=== PATIENT | female | born 2000 | race Caucasian/White ===

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

== ENCOUNTER 2024-03-20 17:13 | Emergency (ER) | payer MEDICAID, SELFPAY ==
--- NOTE | ~2024-03-20 | XR_ITS ---
EXAMINATION: XR CHEST 5:47 PM CLINICAL INFORMATION: Cough, pneumonia COMPARISON: None available. TECHNIQUE: Frontal view of the chest was obtained. FINDINGS: Airspace opacities are evident in the right perihilar region extending to the periphery of the right midlung zone area there are similar though milder opacities in the left perihilar region. No gross pleural effusions are detected. The cardiomediastinal silhouette is normal. XR/XR chest 1V IMPRESSION: Right greater than left perihilar opacities compatible with bronchopneumonia. Follow-up is recommended to confirm clearing Electronically signed by: eRne Batista MD 03/20/2024 05:52 PM EDT RP
[2024-03-20 17:32] VITALS: BP 158/86; PULSE 114; RESP 18; TEMP 36.8; O2SAT 98; BMI 25.9
--- NOTE | 2024-03-20 17:37 | ED_ITS ---
HPI - General Adult General Chief complaint: Upper Respiratory Symptoms Stated complaint: fever/cough Time Seen by Provider: 03/20/24 18:04 Source: patient Mode of arrival: ambulatory Limitations: no limitations History of Present Illness ED Provider: Elena BURGESS narrative: Patient is a 23 yo female with no significant PMH, presenting with 1 x week of upper respiratory symptoms including productive cough and SOB. States her sputum is intermittently green, she is sore in her rib area from coughing, has been having fevers on and off reaching around 101f. Has been self treating with OTC mucinex with limited relief of symptoms. Denies any N/V, states sometimes cough can cause post tussive emesis. Denies any related EENT symptoms, denies any nasal discharge. MD complaint: cough, fever Onset (ago): day(s) Related Data Previous Rx's ?Medication ?Instructions ?Recorded azithromycin 250 mg tablet See Rx Instructions PO .COMPLEX #6 03/20/24 tabs benzonatate 100 mg capsule 100 mg PO TID PRN cough #20 caps 03/20/24 Allergies Allergy/AdvReac Type Severity Reaction Status Date / Time levonorgestrel-ethinyl Allergy Severe ASTHMA Verified 03/20/24 17:34 estradiol [From [facility]] Penicillins Allergy Intermediate HIVES Verified 03/20/24 17:34 SHELLFISH Allergy Severe UNKNOWN Uncoded 11/30/20 17:38 shellfish Allergy Severe Unknown Uncoded 11/30/20 17:38 Amoxicillin Allergy Intermediate hives Uncoded 11/30/20 17:38 DUST Allergy Intermediate RUNNY Uncoded 11/30/20 17:38 NOSE, ITCHY EYES dust mite Allergy Intermediate Runny Nose Uncoded 11/30/20 17:38 envirnmental Allergy Intermediate Runny Nose Uncoded 11/30/20 17:38 seasonal Allergy Intermediate Runny Nose Uncoded 11/30/20 17:38 Review of Systems Review of Systems: As per HPI Yes all other systems are reviewed and are negative Constitutional: Constitutional: Reports as per HPI [facility] Past Medical History Medical History Migraines Social History Social History Advance Directives: No Advance Directives Information Provided: No Physical Exam ED Vital Signs: Vital Signs - 24 hr 03/20/24 17:32 Temperature 98.2 F Pulse Rate 114 H Respiratory Rate 18 Blood Pressure 158/86 H Pulse Oximetry 98 Oxygen Delivery Method Room Air BMI result Body Mass Index 25.9 Const General: cooperative, healthy appearing and no acute distress Orientation/consciousness: oriented to person, oriented to place, oriented to time and patient oriented x3 Limitations: no limitations HENMT Head: Yes normocephalic and Yes atraumatic Ears: external ears normal General nose exam: Normal external nose present Face and sinus: Yes face symmetric Mouth: oropharynx normal and moist mucous membranes Throat: Yes uvula midline Eyes Pupils: Equal, round and reactive pupils present Neck Neck: Yes normal visual inspection and Yes supple Resp Effort & Inspection: normal respiratory effort and able to speak in complete sentences Auscultation: clear to auscultation bilaterally Cardio Rate: regular rate Rhythm: regular rhythm Heart sounds: S1 normal heart sound present and S2 normal heart sound present GI Palpation (GI): Soft to palpation and nontender Auscultation: normoactive bowel sounds General: Yes no CVA tenderness Back/Spine/Pelvis Back: no CVA tenderness Skin General skin exam: elasticity normal and turgor normal Neuro General: oriented to person, oriented to place, oriented to time, patient oriented x3, moves all extremities, no focal motor deficits and CN's II-XI intact bilaterally Cranial nerves: Yes Equal, round and reactive pupils present Cognition (Neuro): normal cognition Extrem General: Yes full ROM, Yes no pedal edema and Yes no calf tenderness Psych Mental Status: mental status grossly normal Affect: normal affect Thought process: Normal thought process present Course Course Course Narrative: RME: Done by TALIA Estrada. 23 yold female presents to the ED for coughing and fever for 1 week. Patient tested negative for COVID strep flu and RSV. Patient is sent for chest x-ray. Lungs clear Medical Decision Making Medical Decision Making MDM Narrative: Patient is a 23 yo female with no significant PMH, presenting with 1 x week of upper respiratory symptoms including productive cough and SOB. On exam patient is awake, A+Ox3, VS WNL, afebrile, normal neurological exam without focal deficits, physical exam findings as above. Given reported symptoms and physical exam findings, initial differential includes viral illness, bronchitis, pneumonia. X-ray notable for pneumonia. My interpretation is in agreement with the radiologist's interpretation. Patient updated on results and all questions answered. Will treat with course of azithromycin. Discussed with patient's you will need to follow up with PCP for repeat chest x-ray to ensure resolution of pneumonia. Return precautions discussed. Patient verbalized understanding of and agreement with plan. Differential Diagnosis Differential Diagnoses: The differential diagnosis associated with the presentation includes As per MDM Independent Interpretation I performed an independent interpretation of an: Plain X-Ray Interpretation: CXR shows bilateral perihilar opacities. Radiology Impression Discussion of test interpretation with radiology: I have reviewed the radiologist's reading. Radiologist Impression: XR/XR chest 1V IMPRESSION: Right greater than left perihilar opacities compatible with bronchopneumonia. Follow-up is recommended to confirm clearing External Record Review External record reviewed: Inpatient record, Office record and Outpatient record Prescription Management I considered prescription management with: Antibiotic Discharge Plan Discharge Clinical Impression: Pneumonia Patient Disposition: Home, Self-Care Instructions: Azithromycin (By mouth), Community Acquired Pneumonia (DC) Additional Instructions: You were evaluated in the emergency department today for cough and shortness of breath. Your chest x-ray shows evidence of pneumonia. You are being treated with antibiotics, please complete the full course as prescribed. You are also being prescribed an inhaler and cough medicine which you can use per instructions. Please call your primary care provider within the next 2-3 days to schedule a follow-up appointment. You will need a repeat chest x-ray to confirm resolution of your pneumonia. Return to the emergency department if you develop worsening shortness of breath, chest pain, palpitations, fever 100.4? F or greater, or any other concerning symptoms. Prescriptions: New azithromycin 250 mg tablet See Rx Instructions .ROUTE .COMPLEX Qty: 6 0RF Rx Instructions: For 250 mg dose pack: take 500 mg today (day 1), then 250 mg for 4 days (days 2-5) benzonatate 100 mg capsule 100 mg PO TID PRN (Reason: cough) Qty: 20 0RF Print Language: Spanish
[2024-03-20 19:11] VITALS: BP 132/93; PULSE 90; RESP 18; TEMP 37.1; O2SAT 98
[2024-03-20 19:19] VITALS: BP 132/93; PULSE 90; RESP 18; TEMP 37.1; O2SAT 98
== END 2024-03-20 19:20 | disposition home or self-care (01) ==
PROVIDERS: Emergency Provider Emergency Medicine
DX: J18.9 Pneumonia, unspecified organism (principal); R50.9 Fever, unspecified; R05.9 Cough, unspecified; R06.02 Shortness of breath
CPT/HCPCS: 71045; 99282; 99283

== ENCOUNTER 2024-03-22 08:08 | Emergency (ER) | payer OTHER, SELFPAY ==
[2024-03-22 08:25] VITALS: BP 121/91; PULSE 86; RESP 18; TEMP 36.8; O2SAT 98; BMI 25.9
--- NOTE | 2024-03-22 09:11 | ED_ITS ---
HPI - General Adult General Chief complaint: Dyspnea Stated complaint: Pneumonia, coughing up blood Time Seen by Provider: 03/22/24 08:59 Source: patient Mode of arrival: ambulatory Limitations: no limitations History of Present Illness ED Provider: IZABELLA LEON PA-C HPI narrative: 23 year old female with remote history of asthma present to the ED today for evaluation of blood tinged sputum x3 days. Patient recently diagnosed with PNA (03/20/24) and started azithromycin the following day. Reports improvement in symptoms (cough) however noticed blood streaks in her sputum 3-4 times, primarily after a coughing fit. She does endorse history of asthma as a child however has not had to use her inhalers for a long period of time. No recent travel or long car rides. Denies OCP use. Denies fevers, chills, N/V, rashes, calf pain/ swelling. Related Data Previous Rx's ?Medication ?Instructions ?Recorded azithromycin 250 mg tablet See Rx Instructions PO .COMPLEX #6 03/20/24 tabs benzonatate 100 mg capsule 100 mg PO TID PRN cough #20 caps 03/20/24 albuterol sulfate 90 mcg/actuation 2 inh inhalation Q20M PRN 03/22/24 breath activated powder shortness of breath or wheezing #1 inhaler,sensor ea cefuroxime axetil 250 mg tablet 250 mg PO BID 7 days #14 tabs 03/22/24 prednisone 20 mg tablet 40 mg (2 x 20 mg) PO DAILY 7 days 03/22/24 #14 tabs Allergies Allergy/AdvReac Type Severity Reaction Status Date / Time levonorgestrel-ethinyl Allergy Severe ASTHMA Verified 03/22/24 08:29 estradiol [From [facility]] Penicillins Allergy Intermediate HIVES Verified 03/22/24 08:29 SHELLFISH Allergy Severe UNKNOWN Uncoded 11/30/20 17:38 shellfish Allergy Severe Unknown Uncoded 11/30/20 17:38 Amoxicillin Allergy Intermediate hives Uncoded 11/30/20 17:38 DUST Allergy Intermediate RUNNY Uncoded 11/30/20 17:38 NOSE, ITCHY EYES dust mite Allergy Intermediate Runny Nose Uncoded 11/30/20 17:38 envirnmental Allergy Intermediate Runny Nose Uncoded 11/30/20 17:38 seasonal Allergy Intermediate Runny Nose Uncoded 11/30/20 17:38 Review of Systems Review of Systems: Yes all other systems are reviewed and are negative [facility] Past Medical History Attestation statement: The following information was validated with the patient. Source: old records reviewed and nursing notes reviewed Medical History Migraines Social History Social History Advance Directives: No Physical Exam ED Vital Signs: Vital Signs - 24 hr 03/22/24 08:25 03/22/24 10:19 Temperature 98.2 F 98.3 F Pulse Rate 86 77 Respiratory Rate 18 18 Blood Pressure 121/91 H 124/85 Pulse Oximetry 98 97 Oxygen Delivery Method Room Air Room Air BMI result Body Mass Index 25.9 Vital signs stable. Afebrile. Not hypoxic. General: Well appearing, in no acute distress. Skin: Warm, dry, intact. No rashes or lesions. Head: Normocephalic, atraumatic. EENT: Hearing is intact b/l. Conjunctiva clear. PERRLA. Moist mucous membranes.? Neck: Supple without LAD Cardiac: Chest wall symmetric. RRR. Lungs: Normal respiratory effort without accessory muscle use. CTA bilaterally. No rales, rhonchi, or wheezes.? Abdomen: Soft, non-tender, non-distended. No rebound tenderness or guarding. Positive BS x4. Back: No midline spinous or paraspinal tenderness. No step off deformity. Ext: Upper and lower extremities atraumatic, without tenderness, deformity, swelling or erythema. Full ROM throughout. no calf tenderness. Neuro: AOx3. Normal speech. Ambulating with steady gait. Psych: Appropriate mood and affect. Responds appropriately to questions. Course Course Course Narrative: 0961 -- patient tested negative for COVID, flu, RSV. Given recent diagnosis of pneumonia, I have suspicion for strep pneumo. Patient treated with azithromycin. I wanted to add on Augmentin however patient has penicillin ej rgy. Will provide dose of Ceftin in the ED and watch for reaction. 7985 -- Ceftin administered, observed for 30 minutes in the ED without noted reaction. Patient states she is feeling well. I feel comfortable discharging her with prescription for Ceftin, prednisone and albuterol for treatment. Advised to follow up with PCP in 3 weeks for repeat chest x-ray to ensure resolution of pneumonia. Patient verbalizes understanding. Patient has remained stable throughout ED visit today. Discussed worrisome signs and symptoms and when to return to the ED. All questions answered at this time. Patient is agreeable with disposition and stable for discharge. Medications Administered Discontinued Medications Generic Name Dose Route Start Last Admin Trade Name Harisq PRN Reason Stop Dose Admin Cefuroxime Axetil 250 mg 03/22/24 09:35 03/22/24 09:44 Cefuroxime Axetil 250 Mg Tablet PO 03/22/24 09:36 250 mg ONCE ONE Administration Methylprednisolone Sodium Succinate 60 mg 03/22/24 09:32 03/22/24 09:44 Methylprednisolone Sod Succ 125 Mg/2 Ml Vial IM 03/22/24 09:33 60 mg ONCE ONE Administration Medical Decision Making Medical Decision Making [facility] Narrative: 23 year old female with remote history of asthma present to the ED today for evaluation of blood tinged sputum x3 days. Vital signs stable. Afebrile. Not hypoxic. She is well-appearing, in no acute distress. Lungs are CTA bilaterally. No rales, rhonchi or wheezes. Posterior oropharynx wnl. Skin W/D/I. Differentia diagnosis includes pnuemonia, bronchitis, asthma exacerbation. PERC 0. PE unlikely. Presentation not consistent with TB, lung mass. Plan for viral swabs, steroid treatment, and re-evaluation. Differential Diagnosis Differential Diagnoses: The differential diagnosis associated with the presentation includes as above Admission/Observation not indicated. Lab Data [facility] Lab Attestation statement: I reviewed the patient's lab results. as above. Labs: Lab Results 03/22/24 Range/Units 08:32 Influenza Type A (PCR) NEGATIVE (Negative) Influenza Type B (PCR) NEGATIVE (Negative) RSV RNA Qual (PCR) NEGATIVE (Negative) SARS-CoV-2 RNA (RT-PCR) NEGATIVE (Negative) Independent Interpretation I performed an independent interpretation of an: Plain X-Ray Interpretation: chest xr 03/20/24 showing perihilar opacities, agree with radiologist's interpretation. Radiology Impression Discussion of test interpretation with radiology: I have reviewed the radiologist's reading. Radiologist Impression: EXAMINATION: XR CHEST 5:47 PM CLINICAL INFORMATION: Cough, pneumonia COMPARISON: None available. TECHNIQUE: Frontal view of the chest was obtained. FINDINGS: Airspace opacities are evident in the right perihilar region extending to the periphery of the right midlung zone area there are similar though milder opacities in the left perihilar region. No gross pleural effusions are detected. The cardiomediastinal silhouette is normal. XR/XR chest 1V IMPRESSION: Right greater than left perihilar opacities compatible with bronchopneumonia. Follow-up is recommended to confirm clearing Electronically signed by: Rene Batista MD 03/20/2024 05:52 PM EDT External Record Review External record reviewed: Inpatient record Prescription Management I considered prescription management with: Antibiotic (ceftin) and Other (prednisone, albuterol) Chronic Conditions Patient?s care impacted by: Other (asthma) Social Determinants Patient?s care significantly limited by Social Determinants of Health including: Other Social Determinant of Health Critical Care Time Critical Care Time Critical Care Time: No Discharge Plan Discharge Clinical Impression: Community acquired pneumonia Patient Disposition: Home, Self-Care Instructions: Community Acquired Pneumonia (ED) Additional Instructions: You tested negative for covid, flu, and rsv. Ceftin is an antibiotic that has been added to your current medication regimen. Take this twice daily for 7 days in addition to the azithromycin. Prednisone is a steroid that has been sent to your pharmacy. Start this tomorrow as you already received a dose of steroids today. Albuterol inhaler has been sent to your pharmacy. Use this as needed for shortness of breath or wheezing. If you find yourself using this more often without improvement, please return to the ED as you may warrant further treatment. You need to follow up with your primary care provider for repeat chest x-ray in 3 weeks to ensure resolution of pneumonia. Return with new or worsening symptoms. In the case of an emergency call 911. Prescriptions: New cefuroxime axetil 250 mg tablet 250 mg PO BID 7 Days Qty: 14 0RF prednisone 20 mg tablet 40 mg PO DAILY 7 Days Qty: 14 0RF albuterol sulfate 90 mcg/actuation aero powdr breath act w/sensor 2 inh inhalation Q20M PRN (Reason: shortness of breath or wheezing) Qty: 1 0RF No Action azithromycin 250 mg tablet See Rx Instructions .ROUTE .COMPLEX Qty: 6 0RF Rx Instructions: For 250 mg dose pack: take 500 mg today (day 1), then 250 mg for 4 days (days 2-5) benzonatate 100 mg capsule 100 mg PO TID PRN (Reason: cough) Qty: 20 0RF [facility] - Stand Alone Forms: Work/School Release Interventions: ED Discharge Assessment Last Done: 03/22/24 10:24 Print Language: Portuguese
[2024-03-22 09:25] LABS: Influenza A PCR NEGATIVE (Negative); Influenza B PCR NEGATIVE (Negative); Resp Syncy Virus RNA Qual PCR NEGATIVE (Negative); SARS COV2 PCR INHOUSE NEGATIVE (Negative)
[2024-03-22] MEDS: cefuroxime axetiL 250 MG TABLET PO (09:44)
[2024-03-22] MEDS: methylPREDNISolone Sod Succ 125 MG/2 ML VIAL 60 MG IM (09:44)
[2024-03-22 10:19] VITALS: BP 124/85; PULSE 77; RESP 18; TEMP 36.8; O2SAT 97
[2024-03-22 10:24] VITALS: BP 124/85; PULSE 77; RESP 18; TEMP 36.8; O2SAT 97
== END 2024-03-22 10:29 | disposition home or self-care (01) ==
PROVIDERS: Emergency Provider Emergency Medicine Emergency Medical Services
DX: J18.9 Pneumonia, unspecified organism (principal); R06.00 Dyspnea, unspecified; R05.9 Cough, unspecified; Z03.818 Encounter for observation for suspected exposure to other biological agents ruled out
CPT/HCPCS: 0241U; 96372; 99282; 99284; J2919

== ENCOUNTER 2024-08-29 16:35 | Emergency (ER) | payer OTHER, SELFPAY ==
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
[2024-08-29 16:40] VITALS: BP 142/84; PULSE 115; O2SAT 98
[2024-08-29 16:42] VITALS: BP 144/91; PULSE 107; RESP 12; TEMP 36.8; O2SAT 100; BMI 25.7
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
[2024-08-29 17:32] LABS: UPreg QC Valid YES; Urine Pregnancy NEGATIVE (NEGATIVE)
[2024-08-29] MEDS: Ondansetron ODT 4 MG TAB.RAPDIS TRANSLINGU (18:02)
[2024-08-29] MEDS: Acetaminophen 325 MG TABLET 975 MG PO (18:02)
[2024-08-29 20:24] VITALS: BP 134/89; PULSE 92; RESP 16; TEMP 36.7; O2SAT 100
== END 2024-08-29 20:25 | disposition home or self-care (01) ==
PROVIDERS: Physician Assistant Medical; Emergency Provider Emergency Medicine Emergency Medical Services
DX: S06.0X0A Concussion without loss of consciousness, initial encounter (principal); R51.9 Headache, unspecified; V43.52XA Car driver injured in collision with other type car in traffic accident, initial encounter; Y93.9 Activity, unspecified; Y92.410 Unspecified street and highway as the place of occurrence of the external cause; Y99.8 Other external cause status
CPT/HCPCS: 70450; 81025; 99283; 99284

== ENCOUNTER → 2024-08-29 17:06 | Outpatient (BNV) | payer SELFPAY | PROVIDERS: Emergency Provider Emergency Medicine Emergency Medical Services; Visit Provider Radiology Diagnostic Radiology | DX: R42 Dizziness and giddiness (principal) | CPT/HCPCS: 70450 ==

== ENCOUNTER 2024-09-06 11:52 | Outpatient (REF) | payer OTHER, SELFPAY ==
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
--- OUTSIDE RECORDS SUMMARY | 2024-09-06 14:13 | XMS_ITS | Encounter Summary ---
Author Organization [employer] Address [address] [facility] 7t [place] [address] Care Team Providers Care Mash Filter Operator Name Role Phone Shawna Funez NP Primary Care Provider [phone] Encounter Details Date Type Department Care Team (Latest Contact Info) Description 09/06/2024 Travel Social History Tobacco Use Types Packs/Day Years [...] AM EDT documented as of this encounter Plan of Treatment Not on file documented as of this encounter Visit Diagnoses Not on filedocumented in this encounter Care Teams Mash Filter Operator Relationship Specialty Start Date End Date Shawna Funez NP [address] [place] [address] PCP - General Family Medicine 12/02/23 documented as of this encounter
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
== END 2024-09-06 11:53 | disposition home or self-care (01) ==
LOC: HO.HHCX 11:52
PROVIDERS: Visit Provider Family Medicine
DX: M54.2 Cervicalgia (principal)
CPT/HCPCS: 72040

== ENCOUNTER → 2024-09-06 11:53 | Outpatient (BNV) | payer SELFPAY | PROVIDERS: Visit Provider Radiology Diagnostic Radiology | DX: M54.2 Cervicalgia (principal); V89.2XXA Person injured in unspecified motor-vehicle accident, traffic, initial encounter | CPT/HCPCS: 72040 ==